=== PATIENT | female | born 1950 | race African-American/Black ===

== ENCOUNTER 2021-10-18 08:07 | Day surgery (SDC) | payer OTHER ==
[2021-10-13 11:54] VITALS: BMI 27.3
[2021-10-18 10:06] VITALS: TEMP 98
[2021-10-18 10:07] VITALS: BP 120/70; PULSE 68
== END 2021-10-18 10:29 | disposition home or self-care (01) ==
LOC: FASU-ENDO 08:07
PROVIDERS: ATTEND Internal Medicine Gastroenterology
PROC: 0DBK8ZX Excision of Ascending Colon, Via Natural or Artificial Opening Endoscopic, Diagnostic (ICD-10-PCS; 2021-10-18)
PROC: 0DBH8ZX Excision of Cecum, Via Natural or Artificial Opening Endoscopic, Diagnostic (ICD-10-PCS; principal; 2021-10-18 09:25)
DX: Z12.11 Encounter for screening for malignant neoplasm of colon (principal); D12.0 Benign neoplasm of cecum; D12.2 Benign neoplasm of ascending colon; K64.0 First degree hemorrhoids
CPT/HCPCS: 88305-TC